=== PATIENT | male | born 1985 | race Caucasian/White ===

== ENCOUNTER 2016-11-29 12:10 | Observation (INO) | payer BC ==
[2016-11-29] MEDS ORDERED: Sodium Chloride 0.9% 1,000 ML IV SCH ×2 (12:45→15:45)
--- NOTE | 2016-11-29 12:45 | EDM.PDOC ---
ED HPI GENERAL MEDICAL PROBLEM - General Chief Complaint: Abdominal Pain Stated Complaint: SENT FROM [place] Time Seen by Provider: 11/29/16 12:14 Source of Information: Reports: Patient, RN Notes Reviewed History Limitations: Reports: No Limitations - History of Present Illness INITIAL COMMENTS - FREE TEXT/NARRATIVE: The patient states that he developed central abdominal pain Jon morning, 11/27. He states that it felt better that afternoon after he had a couple of bowel movements. The pain returned yesterday, 11/28/2016, this time in the lower abdomen. He had nausea, but no emesis. Today he continues to have lower abdominal pain, but without nausea. He describes the pain as a dull ache, but sharp if he moves. It does not radiate. No constipation, diarrhea, or urinary symptoms. No recent fever. No prior similar symptoms. The patient was seen at the [place] [facility] this morning, where a CBC, CMP, and urinalysis were performed. They are all unremarkable, with the exception of his WBC count being elevated at 11.6. The patient does not have a PCP. Lower Abdomen Pain Score (Numeric/FACES): 4 - Related Data Allergies Allergy/AdvReac Type Severity Reaction Status Date / Time No Known Allergies Allergy Verified 11/29/16 12:21 Home Meds: Home Meds . [No Known Home Meds] 11/29/16 [History] Past Medical History - Past Health History Medical/Surgical History: Denies Medical/Surgical History Social & Family History - Tobacco Use Smoking Status *Q: Never Smoker - Caffeine Use Caffeine Use: Reports: None - Alcohol Use Alcohol Use History: Yes Alcohol Use Frequency: Rarely - Recreational Drug Use Recreational Drug Use: No - Living Situation & Occupation Living situation: Reports: , with Spouse, with Family (2 kids) Occupation: Employed (Guest Room Inspector) ED ROS GENERAL - Review of Systems Review Of Systems: See Below Constitutional: Reports: No Symptoms HEENT: Reports: No Symptoms Respiratory: Reports: No Symptoms Cardiovascular: Reports: No Symptoms Endocrine: Reports: No Symptoms GI/Abdominal: Reports: No Symptoms : Reports: No Symptoms Musculoskeletal: Reports: No Symptoms Skin: Reports: No Symptoms Neurological: Reports: No Symptoms Psychiatric: Reports: No Symptoms Hematologic/Lymphatic: Reports: No Symptoms Immunologic: Reports: No Symptoms ED EXAM, GI/ABD - Physical Exam Exam: See Below Exam Limited By: No Limitations General Appearance: Alert, WD/WN, No Apparent Distress Eyes: Bilateral: Normal Appearance, EOMI Ears: Normal External Exam, Hearing Grossly Normal Nose: Normal Inspection, No Blood Throat/Mouth: Normal Inspection, Normal Lips, Normal Voice, No Airway Compromise Head: Atraumatic, Normocephalic Neck: Normal Inspection, Full Range of Motion Respiratory/Chest: No Respiratory Distress, Lungs Clear, Normal Breath Sounds, No Accessory Muscle Use Cardiovascular: Normal Peripheral Pulses, Regular Rate, Rhythm, No Gallop, No JVD, No Murmur, No Rub GI/Abdominal Exam: Normal Bowel Sounds, Soft, No Organomegaly, No Distention, No Abnormal Bruit, No Mass, Pelvis Stable, Tender (Right lower quadrant only. Nontender elsewhere.), Other (Rovsing sign negative. Psoas sign negative. Obturator sign negative. Heel drop sign slightly positive.). No: Rebound (Male) Exam: Deferred Back Exam: Normal Inspection, Full Range of Motion. No: CVA Tenderness (L), CVA Tenderness (R) Extremities: Normal Inspection, Normal Range of Motion, No Pedal Edema, Normal Capillary Refill Neurological: Alert, Oriented, Normal Cognition, No Motor/Sensory Deficits Psychiatric: Normal Affect Skin Exam: Warm, Dry, Intact, Normal Color, No Rash Lymphatic: No Adenopathy Course - Vital Signs Last Recorded V/S: Last Vital Signs Temp 36.7 C 11/29/16 12:17 Pulse 73 11/29/16 12:17 Resp 20 11/29/16 15:17 BP 129/81 11/29/16 12:17 Pulse Ox 99 11/29/16 15:17 - Orders/Labs/Meds Orders: Active Orders 24 hr Category Date Time Status Admission Status [Patient Status] [ADT] Routine ADT 11/29/16 15:37 Active Antiembolic Devices [RC] PER UNIT ROUTINE Care 11/29/16 15:35 Active Communication Order [RC] ROUTINE Care 11/29/16 15:33 Active Patient to Empty Bladder [RC] ASDIRECTED Care 11/29/16 15:33 Active Verify Patient Consent Obtain [RC] ASDIRECTED Care 11/29/16 15:34 Active Nothing per Oral Now Diet [DIET] Diet 11/29/16 Breakfast Active Abdomen Pelvis w Cont [CT] Stat Exams 11/29/16 12:39 Taken Ertapenem [INVanz] 1 gm Med 11/29/16 15:28 Active Sodium Chloride 0.9% [Normal Saline] 100 ml IV ONETIME Ertapenem [INVanz] 1 gm Med 11/29/16 15:33 Active Sodium Chloride 0.9% [Normal Saline] 100 ml IV ONETIME Sodium Chloride 0.9% [Normal Saline] 1,000 ml Med 11/29/16 12:45 Active IV ASDIRECTED Sodium Chloride 0.9% [Normal Saline] 1,000 ml Med 11/29/16 15:45 Active IV ASDIRECTED Sodium Chloride 0.9% [Saline Flush] Med 11/29/16 13:36 Active 10 ml FLUSH ONETIME PRN Schedule Procedure [COMM] Stat Oth 11/29/16 15:10 Ordered Sequential Compression Device [OM.PC] Routine Oth 11/29/16 15:33 Ordered Resuscitation Status Routine Resus Stat 11/29/16 15:33 Ordered Medication Orders Sodium Chloride (Normal Saline) 1,000 mls @ 150 mls/hr IV ASDIRECTED TOM Last Admin: 11/29/16 12:45 Dose: 150 mls/hr Ertapenem 1 gm/ Sodium (Chloride) 100 mls @ 100 mls/hr IV ONETIME ONE Stop: 11/29/16 16:27 Last Admin: 11/29/16 15:36 Dose: 100 mls/hr Ertapenem 1 gm/ Sodium (Chloride) 100 mls @ 100 mls/hr IV ONETIME ONE Stop: 11/29/16 16:32 Sodium Chloride (Normal Saline) 1,000 mls @ 125 mls/hr IV ASDIRECTED [facility] Sodium Chloride (Saline Flush) 10 ml FLUSH ONETIME PRN PRN Reason: IV FLUSH Last Admin: 11/29/16 14:11 Dose: 10 ml Meds: Medications Generic Name Dose Route Start Last Admin Trade Name Freq PRN Reason Stop Dose Admin Sodium Chloride 1,000 mls @ 150 mls/hr 11/29/16 12:45 11/29/16 12:45 Normal Saline IV 150 mls/hr ASDIRECTED TOM Administration Ertapenem 1 gm/ Sodium 100 mls @ 100 mls/hr 11/29/16 15:28 11/29/16 15:36 Chloride IV 11/29/16 16:27 100 mls/hr ONETIME ONE Administration Ertapenem 1 gm/ Sodium 100 mls @ 100 mls/hr 11/29/16 15:33 Chloride IV 11/29/16 16:32 ONETIME ONE Sodium Chloride 1,000 mls @ 125 mls/hr 11/29/16 15:45 Normal Saline IV ASDIRECTED TOM Sodium Chloride 10 ml 11/29/16 13:36 11/29/16 14:11 Saline Flush FLUSH 10 ml ONETIME PRN Administration IV FLUSH Discontinued Medications Generic Name Dose Route Start Last Admin Trade Name Myra PRN Reason Stop Dose Admin Bupivacaine HCl/Epinephrine Bitart Confirm 11/29/16 15:19 Marcaine 0.5%/Epinephrine 1:200,000 Administered 11/29/16 15:20 Dose 50 ml .ROUTE .STK-MED ONE Dexamethasone Confirm 11/29/16 15:39 Dexamethasone Administered 11/29/16 15:40 Dose 20 mg .ROUTE .STK-MED ONE Diatrizoate Meglum/Diatrizoate Sod 90 ml 11/29/16 13:36 11/29/16 14:11 Gastrografin 37% PO 11/29/16 13:37 90 ml ONETIME ONE Administration Fentanyl Confirm 11/29/16 15:37 Sublimaze Administered 11/29/16 15:38 Dose 250 mcg .ROUTE .STK-MED ONE Lidocaine HCl Confirm 11/29/16 15:39 Xylocaine-Mpf 1% Administered 11/29/16 15:40 Dose 4 mls @ as directed .ROUTE .STK-MED ONE Iopamidol 125 ml 11/29/16 13:36 11/29/16 14:11 Isovue-300 (61%) IVPUSH 11/29/16 13:37 110 ml ONETIME ONE Administration Lidocaine/Epinephrine Confirm 11/29/16 15:18 Xylocaine 1% With Epinephrine 1:100,000 Administered 11/29/16 15:19 Dose 20 ml .ROUTE .STK-MED ONE Midazolam HCl Confirm 11/29/16 15:37 Versed 1 Mg/Ml Administered 11/29/16 15:38 Dose 2 mg .ROUTE .STK-MED ONE Ondansetron HCl Confirm 11/29/16 15:39 Zofran Administered 11/29/16 15:40 Dose 4 mg .ROUTE .STK-MED ONE Propofol Confirm 11/29/16 15:37 Diprivan 20 Ml Administered 11/29/16 15:38 Dose 200 mg .ROUTE .STK-MED ONE Rocuronium [place] Confirm 11/29/16 15:39 Zemuron Administered 11/29/16 15:40 Dose 50 mg .ROUTE .STK-MED ONE Scopolamine 1.5 mg 11/29/16 15:17 11/29/16 15:37 Transderm-Scop TRDERM 11/29/16 15:18 1.5 mg ONETIME ONE Administration Succinylcholine Chloride Confirm 11/29/16 15:39 Quelicin Administered 11/29/16 15:40 Dose 200 mg .ROUTE .STK-MED ONE - Re-Assessments/Exams Free Text/Narrative Re-Assessment/Exam: 11/29/16 14:50 CT of the abdomen and pelvis with oral and IV contrast is read by [facility] as "severe, acute appendicitis. No definite evidence for rupture." 11/29/16 14:[address] Cote at 14:51. He would like us to call in the OR team, including anesthesia, and he will come to the ED to evaluate the patient. Departure - Departure Time of Disposition: 14:55 Disposition: DC/Tfer to [facility] Condition: Fair Clinical Impression: Acute appendicitis Qualifiers: Acute appendicitis type: unspecified acute appendicitis type Qualified Code(s) : K35.80 - Unspecified acute appendicitis - Discharge Information - My Orders Last 24 Hours: My Active Orders 11/29/16 12:39 Abdomen Pelvis w Cont [CT] Stat 11/29/16 12:45 Sodium Chloride 0.9% [Normal Saline] 1,000 ml IV ASDIRECTED 11/29/16 13:36 Sodium Chloride 0.9% [Saline Flush] 10 ml FLUSH ONETIME PRN 11/29/16 Breakfast Nothing per Oral Now Diet [DIET] - Assessment/Plan Last 24 Hours: My Active Orders 11/29/16 12:39 Abdomen Pelvis w Cont [CT] Stat 11/29/16 12:45 Sodium Chloride 0.9% [Normal Saline] 1,000 ml IV ASDIRECTED 11/29/16 13:36 Sodium Chloride 0.9% [Saline Flush] 10 ml FLUSH ONETIME PRN 11/29/16 Breakfast Nothing per Oral Now Diet [DIET]
[2016-11-29] MEDS ORDERED: Sodium Chloride 0.9% 10 ML Syringe FLUSH PRN (13:36)
[2016-11-29] MEDS ORDERED: Diatrizoate Meglumine/Diatrizoate Sodium 37% 120 ML Bottle PO ONE (13:36)
[2016-11-29] MEDS ORDERED: Iopamidol 612 MG/ML 150 ML Bottle IVPUSH ONE (13:36)
[2016-11-29] MEDS ORDERED: Scopolamine 1.5 MG Transdermal Patch TRDERM ONE (15:17)
--- NOTE | 2016-11-29 15:17 | PCM.PREANE ---
Preanesthetic Assessment - Anesthesia/Transfusion/Family Hx Anesthesia History: No Prior Anesthesia Family History of Anesthesia Reaction: No Transfusion History: No Prior Transfusion(s) - Review of Systems General: No Symptoms Pulmonary: No Symptoms Cardiovascular: No Symptoms Gastrointestinal: No Symptoms Neurological: No Symptoms Other: Reports: None - Physical Assessment NPO Status Date: 11/29/16 NPO Status Time: 11:30 (1350 contrast dye) O2 Sat by Pulse Oximetry: 99 Respiratory Rate: 20 Vital Signs: Last Vital Signs Temp 36.7 C 11/29/16 12:17 Pulse 73 11/29/16 12:17 Resp 20 11/29/16 12:17 BP 129/81 11/29/16 12:17 Pulse Ox 99 11/29/16 12:17 Height: 1.73 m Weight: 62.596 kg ASA Class: 1E Mental Status: Alert & Oriented x3 Airway Class: Mallampati = 1 Dentition: Reports: Normal Dentition Thyro-Mental Finger Breadths: 3 Mouth Opening Finger Breadths: 3 ROM/Head Extension: Full Lungs: Clear to Auscultation, Normal Respiratory Effort Cardiovascular: Regular Rate, Regular Rhythm - Allergies Allergies/Adverse Reactions: Allergies Allergy/AdvReac Type Severity Reaction Status Date / Time No Known Allergies Allergy Verified 11/29/16 12:21 - Blood Blood Available: No Product(s) Available: None - Anesthesia Plan Pre-Op Medication Ordered: None - Acknowledgements Anesthesia Type Planned: General Anesthesia Pt an Appropriate Candidate for the Planned Anesthesia: Yes Alternatives and Risks of Anesthesia Discussed w Pt/Guardian: Yes Pt/Guardian Understands and Agrees with Anesthesia Plan: Yes PreAnesthesia Questionnaire - Past Health History Medical/Surgical History: Denies Medical/Surgical History - SUBSTANCE USE Smoking Status *Q: Never Smoker Recreational Drug Use History: No - HOME MEDS Home Medications: Home Meds . [No Known Home Meds] 11/29/16 [History] - CURRENT (IN HOUSE) MEDS Current Meds: Current Medications Sodium Chloride (Normal Saline) 1,000 mls @ 150 mls/hr IV ASDIRECTED TOM Last Admin: 11/29/16 12:45 Dose: 150 mls/hr Sodium Chloride (Saline Flush) 10 ml FLUSH ONETIME PRN PRN Reason: IV FLUSH Last Admin: 11/29/16 14:11 Dose: 10 ml Discontinued Medications Diatrizoate Meglum/Diatrizoate Sod (Gastrografin 37%) 90 ml PO ONETIME ONE Stop: 11/29/16 13:37 Last Admin: 11/29/16 14:11 Dose: 90 ml Iopamidol (Isovue-300 (61%)) 125 ml IVPUSH ONETIME ONE Stop: 11/29/16 13:37 Last Admin: 11/29/16 14:11 Dose: 110 ml
[2016-11-29] MEDS ORDERED: Lidocaine 1% with EPINEPHrine 1:100,000 20 ML MDV ONE (15:18)
[2016-11-29] MEDS ORDERED: Bupivacaine 0.5%/EPINEPHrine 1:200,000 50 ML MDV ONE (15:19)
[2016-11-29] MEDS ORDERED: Ertapenem 1 GM in Sodium Chloride 0.9% 100 ML IV ONE ×2 (15:28→15:33)
[2016-11-29] MEDS ORDERED: Propofol 200 MG/20 ML SDV ONE (15:37)
[2016-11-29] MEDS ORDERED: fentaNYL 250 MCG/5 ML SDV ONE (15:37)
[2016-11-29] MEDS ORDERED: Midazolam 1 MG/ML 2 ML SDV ONE (15:37)
[2016-11-29] MEDS ORDERED: Succinylcholine 200 MG/10 ML MDV ONE (15:39)
[2016-11-29] MEDS ORDERED: Ondansetron 4 MG/2 ML SDV ONE (15:39)
[2016-11-29] MEDS ORDERED: Lidocaine 1% 4 ML ONE (15:39)
[2016-11-29] MEDS ORDERED: Rocuronium 50 MG/5 ML Vial ONE (15:39)
[2016-11-29] MEDS ORDERED: Dexamethasone 4 MG/ML 5 ML MDV ONE (15:39)
--- NOTE | 2016-11-29 15:39 | PCM.HP ---
H&P History of Present Illness - General Date of Service: 11/29/16 Source of Information: Patient History Limitations: Reports: No Limitations - History of Present Illness Initial Comments - Free Text/Narative: 31-year-old male experienced abdominal discomfort yesterday. Eventually the discomfort evolved into periumbilical pain which migrated to the right lower quadrant. Because of persistent pain he presented to the emergency room. A CT scan of his abdomen was performed and was remarkable for acute appendicitis. I was asked to see him for surgery. He ate raisins about 4 hours ago. Lower Abdomen Pain Score (Numeric/FACES): 4 - Related Data Allergies/Adverse Reactions: Allergies Allergy/AdvReac Type Severity Reaction Status Date / Time No Known Allergies Allergy Verified 11/29/16 12:21 Home Medications: Home Meds . [No Known Home Meds] 11/29/16 [History] Past Medical History - Past Health History Medical/Surgical History: Denies Medical/Surgical History Social & Family History - Tobacco Use Smoking Status *Q: Never Smoker - Caffeine Use Caffeine Use: Reports: None - Recreational Drug Use Recreational Drug Use: No - Living Situation & Occupation Living situation: Reports: , with Spouse, with Family (2 kids) Occupation: Employed (Assistant Merchandise Manager) H&P Review of Systems - Review of Systems: Review Of Systems: See Below Gastrointestinal: Reports: Abdominal Pain Exam - Exam Exam: See Below - Vital Signs Vital Signs: Last Vital Signs Temp 36.7 C 11/29/16 12:17 Pulse 73 11/29/16 12:17 Resp 20 11/29/16 15:17 BP 129/81 11/29/16 12:17 Pulse Ox 99 11/29/16 15:17 Weight: 62.596 kg - Exam General: Alert, Oriented HEENT: EOMI, Hearing Intact Neck: Supple, Trachea Midline Lungs: Clear to Auscultation, Normal Respiratory Effort Cardiovascular: Regular Rate, Regular Rhythm, Normal S1, Normal S2 GI/Abdominal Exam: Normal Bowel Sounds, Soft, Tender (Midline to right lower quadrant) Rectal (Males) Exam: Deferred Back Exam: Normal Inspection Extremities: Non-Tender Skin: Warm, Dry, Intact Neuro Extensive - Mental Status: Alert, Oriented x3, Normal Mood/Affect, Normal Cognition, Memory Intact Psychiatric: Alert, Normal Affect, Normal Mood *Q Meaningful Use (ADM) - VTE *Q VTE Criteria *Q: - Stroke *Q Stroke Criteria *Q: - AMI *Q AMI Criteria *Q: - Problem List (1) Acute appendicitis SNOMED Code(s): 83936044 ICD Code: K35.80 - UNSPECIFIED ACUTE APPENDICITIS Status: Acute Priority : Medium Current Visit: Yes Onset Date: ~11/28/16 Qualifiers: Acute appendicitis type: unspecified acute appendicitis type Qualified Code (s): K35.80 - Unspecified acute appendicitis Problem List Initiated/Reviewed/Updated: Yes Orders Last 24hrs: Active Orders 24 hr Category Date Time Status Antiembolic Devices [RC] PER UNIT ROUTINE Care 11/29/16 15:35 Ordered Communication Order [RC] ROUTINE Care 11/29/16 15:33 Ordered Patient to Empty Bladder [RC] ASDIRECTED Care 11/29/16 15:33 Ordered Verify Patient Consent Obtain [RC] ASDIRECTED Care 11/29/16 15:34 Ordered Nothing per Oral Now Diet [DIET] Diet 11/29/16 Breakfast Active Abdomen Pelvis w Cont [CT] Stat Exams 11/29/16 12:39 Taken Ertapenem [INVanz] 1 gm Med 11/29/16 15:28 Active Sodium Chloride 0.9% [Normal Saline] 100 ml IV ONETIME Ertapenem [INVanz] 1 gm Med 11/29/16 15:33 Ordered Sodium Chloride 0.9% [Normal Saline] 100 ml IV ONETIME Sodium Chloride 0.9% @ 125 MLS/HR (1000ml) Med 11/29/16 15:45 Ordered Sodium Chloride 0.9% [Normal Saline] 1,000 ml IV ASDIRECTED Sodium Chloride 0.9% [Normal Saline] 1,000 ml Med 11/29/16 12:45 Active IV ASDIRECTED Sodium Chloride 0.9% [Saline Flush] Med 11/29/16 13:36 Active 10 ml FLUSH ONETIME PRN Schedule Procedure [COMM] Stat Oth 11/29/16 15:10 Ordered Sequential Compression Device [OM.PC] Routine Oth 11/29/16 15:33 Ordered Resuscitation Status Routine Resus Stat 11/29/16 15:33 Ordered Medication Orders Sodium Chloride (Normal Saline) 1,000 mls @ 150 mls/hr IV ASDIRECTED TOM Last Admin: 11/29/16 12:45 Dose: 150 mls/hr Ertapenem 1 gm/ Sodium (Chloride) 100 mls @ 100 mls/hr IV ONETIME ONE Stop: 11/29/16 16:27 Sodium Chloride (Saline Flush) 10 ml FLUSH ONETIME PRN PRN Reason: IV FLUSH Last Admin: 11/29/16 14:11 Dose: 10 ml Assessment/Plan Comment:: imp: Acute appendicitis. I recommended labs Copaxone possible open appendectomy. plan: Appendectomy. Prophylactic antibiotics. The benefits and risks as well as the alternatives were explained to the patient. We talked about bleeding infection as well as intra-abdominal and pelvic injury. I also discussed the possibility of admission to the hospital for additional care if needed. He wants to proceed.
[2016-11-29] MEDS ORDERED: Ondansetron 4 MG/2 ML SDV IVPUSH PRN ×2 (16:19→16:52)
[2016-11-29] MEDS ORDERED: diphenhydrAMINE 50 MG/ML SDV IVPUSH PRN (16:19)
[2016-11-29] MEDS ORDERED: HYDROmorphone 0.5 MG/0.5 ML Syringe IVPUSH PRN ×2 (16:19→16:52)
[2016-11-29] MEDS ORDERED: fentaNYL 100 MCG/2 ML SDV IVPUSH PRN (16:19)
[2016-11-29] MEDS ORDERED: HYDROmorphone 1 MG/ML Syringe ONE (16:23)
[2016-11-29] MEDS ORDERED: Glycopyrrolate 0.2 MG/ML SDV ONE ×2 (16:45→16:47)
[2016-11-29] MEDS ORDERED: Neostigmine Methylsulfate 10 MG/10 ML MDV ONE (16:45)
[2016-11-29] MEDS ORDERED: Acetaminophen/oxyCODONE 325-5 MG Tab PO PRN (16:52)
[2016-11-29] MEDS ORDERED: Piperacillin/Tazobactam 4.5 GM in Sodium Chloride 0.9% 100 ML IV ONE (17:00)
--- NOTE | 2016-11-29 17:01 | PCM.OPNOTE ---
- General Post-Op/Procedure Note Date of Surgery/Procedure: 11/29/16 Operative Procedure(s): Laparoscopic appendectomy Findings: Edematous and dilated appendix with omental wrap. Turbid fluid in the pelvis. Possible perforation into the mesentery of the appendix. Adhesions between the cecum and the right lower quadrant. Pre Op Diagnosis: Acute appendicitis Post-Op Diagnosis: Same Anesthesia Technique: General ET Tube, Local Primary Surgeon: Patrice Cote Pathology: Appendix EBL in mLs: 2 Complications: None Condition: Good Free Text/Narrative:: After adequate general endotracheal tube anesthesia was obtained the patient's abdomen was prepped and draped sterilely for the procedure. A supraumbilical incision was made with a 15 blade after local analgesia was given. The incision was deepened to the midline which was opened sharply with a 15 blade. A 12 mm camera port was inserted into the abdomen followed by CO2 pneumoperitoneum. A 5 mm working port was placed in the suprapubic region and in the left lower quadrant. Exploration revealed the findings above. I the omentum which was wrapped around the body of the appendix with suction and irrigation dissection. I then created a window in the mesentery at the appendiceal base. I fired the stapler across the appendiceal base. I then fired 3 more loads across the thickened appendiceal mesentery. With the stapler in the locked position there was apparent exudate or pus versus mucus coming from the mesenteric stump which suggested a possible perforation into the appendiceal mesentery. There was no fecal or purulent spillage. I irrigated out the right lower quadrant and right upper quadrants with 2 L of saline solution. The specimen was removed through the umbilicus in a bag. There was no obvious bowel injury as well and no bleeding seen. I decannulated the abdomen under direct vision with no bleeding from the port sites. Photographs were taken for the patient and for the record.
--- NOTE | 2016-11-29 17:07 | PCM.POSTAN ---
POST ANESTHESIA ASSESSMENT - MENTAL STATUS Mental Status: Alert, Oriented - VITAL SIGNS Pulse Rate: 102 SaO2: 99 Resp Rate: 21 Blood Pressure: 144/93 Temperature: 37.1 C - RESPIRATORY Respiratory Status: Respiratory Rate WNL, Airway Patent, O2 Saturation Stable, Supplemental Oxygen - CARDIOVASCULAR CV Status: Pulse Rate WNL, Blood Pressure Stable - GASTROINTESTINAL GI Status: No Symptoms - PAIN Pain Score: 0 - POST OP HYDRATION Hydration Status: Adequate & Stable
[2016-11-29] MEDS ORDERED: Ketorolac 30 MG/ML SDV ONE (17:13)
[2016-11-29] MEDS: Ketorolac 15 MG/ML SDV IM SCH ×2 (18:35→22:30)
[2016-11-29] MEDS: Sodium Chloride 0.9% 1,000 ML IV SCH (18:45)
[2016-11-29] MEDS: Piperacillin/Tazobactam 4.5 GM in Sodium Chloride 0.9% 100 ML IV SCH (23:31)
[2016-11-30] MEDS: Sodium Chloride 0.9% 1,000 ML IV SCH (04:40)
[2016-11-30] MEDS: Ketorolac 15 MG/ML SDV IM SCH ×2 (04:41→14:19)
[2016-11-30] MEDS: Piperacillin/Tazobactam 4.5 GM in Sodium Chloride 0.9% 100 ML IV SCH ×2 (06:15→14:09)
[2016-11-30] MEDS ORDERED: Sodium Chloride 0.9% 10 ML Syringe FLUSH PRN (08:01)
--- NOTE | 2016-11-30 08:04 | PCM.SURGPN ---
- General Info Date of Service: 11/30/16 Functional Status: Reports: Pain Controlled, Tolerating Diet, Ambulating, Urinating - Review of Systems Gastrointestinal: Reports: Other (Left lateral port site discomfort) - Patient Data Vitals - Most Recent: Last Vital Signs Temp 36.8 C 11/30/16 04:29 Pulse 53 L 11/30/16 04:29 Resp 14 11/30/16 04:29 BP 98/59 L 11/30/16 04:29 Pulse Ox 94 L 11/30/16 04:29 Weight - Most Recent: 64.093 kg I&O - Last 24 Hours: Intake & Output 11/29/16 11/30/16 11/30/16 22:59 06:59 14:59 Intake Total 250 2598 Balance 250 2598 Lab Results Last 24 Hrs: Laboratory Results - last 24 hr 11/30/16 Range/Units 05:42 WBC 9.86 H (4.23-9.07) K/mm3 RBC 3.95 L (4.63-6.08) M/mm3 Hgb 12.3 L (13.7-17.5) gm/L Hct 36.5 L (40.1-51.0) % MCV 92.4 H (79.0-92.2) fl MCH 31.1 (25.7-32.2) pg MCHC 33.7 (32.2-35.5) g/dl RDW Std Deviation 49.5 H (35.1-43.9) fL Plt Count 268 (163-337) K/mm3 MPV 11.3 (9.4-12.3) fl Neut % (Auto) 82.1 H (34.0-67.9) % Lymph % (Auto) 10.9 L (21.8-53.1) % Major % (Auto) 6.9 (5.3-12.2) % Eos % (Auto) 0 L (0.8-7.0) Baso % (Auto) 0.0 L (0.1-1.2) % Neut # (Auto) 8.10 H (1.78-5.38) K/mm3 Lymph # (Auto) 1.07 L (1.32-3.57) K/mm3 Major # (Auto) 0.68 (0.30-0.82) K/mm3 Eos # (Auto) 0.00 L (0.04-0.54) K/mm3 Baso # (Auto) 0.00 L (0.01-0.08) K/mm3 Med Orders - Current: Current Medications Acetaminophen (Tylenol) 650 mg PO Q4H PRN PRN Reason: Pain Diphenhydramine HCl (Benadryl) 25 mg IVPUSH Q6H PRN PRN Reason: Pruritis Hydromorphone HCl (Dilaudid) 0.5 mg IVPUSH Q1H PRN PRN Reason: Pain (severe 7-10) Piperacillin Sod/Tazobactam (Sod 4.5 gm/ Sodium Chloride) 100 mls @ 25 mls/hr IV Q8H [facility] Last Admin: 11/30/16 06:15 Dose: 25 mls/hr Ketorolac Tromethamine (Toradol) 15 mg IM Q6H [facility] Stop: 11/30/16 11:01 Last Admin: 11/30/16 04:41 Dose: Not Given Ondansetron HCl (Zofran) 4 mg IVPUSH Q6H PRN PRN Reason: Nausea/Vomiting Oxycodone/Acetaminophen (Percocet 325-5 Mg) 1 tab PO Q4H PRN PRN Reason: Pain (moderate 4-6) Sodium Chloride (Saline Flush) 10 ml FLUSH ONETIME PRN PRN Reason: IV FLUSH Last Admin: 11/29/16 14:11 Dose: 10 ml Sodium Chloride (Saline Flush) 10 ml FLUSH ASDIRECTED PRN PRN Reason: Keep Vein Open Discontinued Medications Bupivacaine HCl/Epinephrine Bitart (Marcaine 0.5%/Epinephrine 1:200,000) Confirm Administered Dose 50 ml .ROUTE .STK-MED ONE Stop: 11/29/16 15:20 Last Admin: 11/29/16 16:08 Dose: 10 ml Dexamethasone (Dexamethasone) Confirm Administered Dose 20 mg .ROUTE .STK-MED ONE Stop: 11/29/16 15:40 Diatrizoate Meglum/Diatrizoate Sod (Gastrografin 37%) 90 ml PO ONETIME ONE Stop: 11/29/16 13:37 Last Admin: 11/29/16 14:11 Dose: 90 ml Fentanyl (Sublimaze) Confirm Administered Dose 250 mcg .ROUTE .STK-MED ONE Stop: 11/29/16 15:38 Fentanyl (Sublimaze) 50 mcg IVPUSH Q5M PRN PRN Reason: Pain Stop: 11/29/16 16:35 Glycopyrrolate (Robinul) Confirm Administered Dose 0.6 mg .ROUTE .STK-MED ONE Stop: 11/29/16 16:46 Glycopyrrolate (Robinul) Confirm Administered Dose 0.4 mg .ROUTE .STK-MED ONE Stop: 11/29/16 16:48 Hydromorphone HCl (Dilaudid) Confirm Administered Dose 1 mg .ROUTE .STK-MED ONE Stop: 11/29/16 16:24 Hydromorphone HCl (Dilaudid) 0.5 mg IVPUSH Q15M PRN PRN Reason: Pain (severe 7-10) Stop: 11/29/16 16:35 Sodium Chloride (Normal Saline) 1,000 mls @ 150 mls/hr IV ASDIRECTED [facility] Last Admin: 11/29/16 12:45 Dose: 150 mls/hr Lidocaine HCl (Xylocaine-Mpf 1%) Confirm Administered Dose 4 mls @ as directed .ROUTE .STK-MED ONE Stop: 11/29/16 15:40 Ertapenem 1 gm/ Sodium (Chloride) 100 mls @ 100 mls/hr IV ONETIME ONE Stop: 11/29/16 16:27 Last Admin: 11/29/16 15:36 Dose: 100 mls/hr Ertapenem 1 gm/ Sodium (Chloride) 100 mls @ 100 mls/hr IV ONETIME ONE Stop: 11/29/16 16:32 Last Admin: 11/29/16 18:34 Dose: Not Given Sodium Chloride (Normal Saline) 1,000 mls @ 125 mls/hr IV ASDIRECTED [facility] Sodium Chloride (Normal Saline) 1,000 mls @ 125 mls/hr IV ASDIRECTED [facility] Last Admin: 11/30/16 04:40 Dose: 125 mls/hr Piperacillin Sod/Tazobactam (Sod 4.5 gm/ Sodium Chloride) 100 mls @ 200 mls/hr IV ONETIME ONE Stop: 11/29/16 17:29 Last Admin: 11/29/16 18:44 Dose: 200 mls/hr Iopamidol (Isovue-300 (61%)) 125 ml IVPUSH ONETIME ONE Stop: 11/29/16 13:37 Last Admin: 11/29/16 14:11 Dose: 110 ml Ketorolac Tromethamine (Toradol) Confirm Administered Dose 30 mg .ROUTE .STK- MED ONE Stop: 11/29/16 17:14 Lidocaine/Epinephrine (Xylocaine 1% With Epinephrine 1:100,000) Confirm Administered Dose 20 ml .ROUTE .STK-MED ONE Stop: 11/29/16 15:19 Last Admin: 11/29/16 16:08 Dose: 10 ml Midazolam HCl (Versed 1 Mg/Ml) Confirm Administered Dose 2 mg .ROUTE .STK-MED ONE Stop: 11/29/16 15:38 Neostigmine Methylsulfate (Neostigmine Methylsulfate) Confirm Administered Dose 10 mg .ROUTE .STK-MED ONE Stop: 11/29/16 16:46 Ondansetron HCl (Zofran) Confirm Administered Dose 4 mg .ROUTE .STK-MED ONE Stop: 11/29/16 15:40 Ondansetron HCl (Zofran) 4 mg IVPUSH ONETIME PRN PRN Reason: Nausea/Vomiting Propofol (Diprivan 20 Ml) Confirm Administered Dose 200 mg .ROUTE .STK-MED ONE Stop: 11/29/16 15:38 Rocuronium [place] (Zemuron) Confirm Administered Dose 50 mg .ROUTE .STK-MED ONE Stop: 11/29/16 15:40 Scopolamine (Transderm-Scop) 1.5 mg TRDERM ONETIME ONE Stop: 11/29/16 15:18 Last Admin: 11/29/16 15:37 Dose: 1.5 mg Succinylcholine Chloride (Quelicin) Confirm Administered Dose 200 mg .ROUTE .STK -MED ONE Stop: 11/29/16 15:40 - Exam Wound/Incisions: Dressing Dry and Intact - Problem List & Annotations (1) Acute appendicitis SNOMED Code(s): 59046976 Code(s): K35.80 - UNSPECIFIED ACUTE APPENDICITIS Status: Resolved Priority: Medium Current Visit: Yes Onset Date: ~11/28/16 Qualifiers: Acute appendicitis type: unspecified acute appendicitis type Qualified Code (s): K35.80 - Unspecified acute appendicitis - Problem List Review Problem List Initiated/Reviewed/Updated: Yes - My Orders Last 24 Hours: Active Orders 24 hr Category Date Time Status Acetaminophen [Tylenol] Med 11/30/16 08:02 Ordered 650 mg PO Q4H PRN Piperacillin/Tazobactam [Zosyn] 4.5 gm Med 11/29/16 23:00 Active Sodium Chloride 0.9% [Normal Saline] 100 ml IV Q8H Sodium Chloride 0.9% [Saline Flush] Med 11/30/16 08:01 Ordered 10 ml FLUSH ASDIRECTED PRN Convert IV to Saline Lock [OM.PC] Routine Oth 11/30/16 08:01 Ordered Medication Orders Acetaminophen (Tylenol) 650 mg PO Q4H PRN PRN Reason: Pain Diphenhydramine HCl (Benadryl) 25 mg IVPUSH Q6H PRN PRN Reason: Pruritis Hydromorphone HCl (Dilaudid) 0.5 mg IVPUSH Q1H PRN PRN Reason: Pain (severe 7-10) Piperacillin Sod/Tazobactam (Sod 4.5 gm/ Sodium Chloride) 100 mls @ 25 mls/hr IV Q8H [facility] Last Admin: 11/30/16 06:15 Dose: 25 mls/hr Infusion: 11/30/16 03:31 Dose: 25 mls/hr Admin: 11/29/16 23:31 Dose: 25 mls/hr Ketorolac Tromethamine (Toradol) 15 mg IM Q6H [facility] Stop: 11/30/16 11:01 Last Admin: 11/30/16 04:41 Dose: Not Given Admin: 11/29/16 22:30 Dose: Not Given Admin: 11/29/16 18:35 Dose: Ondansetron HCl (Zofran) 4 mg IVPUSH Q6H PRN PRN Reason: Nausea/Vomiting Oxycodone/Acetaminophen (Percocet 325-5 Mg) 1 tab PO Q4H PRN PRN Reason: Pain (moderate 4-6) Sodium Chloride (Saline Flush) 10 ml FLUSH ONETIME PRN PRN Reason: IV FLUSH Last Admin: 11/29/16 14:11 Dose: 10 ml Sodium Chloride (Saline Flush) 10 ml FLUSH ASDIRECTED PRN PRN Reason: Keep Vein Open - Assessment Assessment (Free Text/Narrative):: Doing well. Plan discharge after 3 postoperative doses of Zosyn then will discharge on oral antibiotics this evening. - Plan Plan (Free Text/Narrative):: Discharge around 6 PM.
--- NOTE | 2016-11-30 08:37 | PCM48HPAN ---
Post Anesthesia Note - EVALUATION WITHIN 48HRS OF ANESTHETIC Vital Signs in Normal Range: Yes Patient Participated in Evaluation: Yes Respiratory Function Stable: Yes Airway Patent: Yes Cardiovascular Function Stable: Yes Hydration Status Stable: Yes Pain Control Satisfactory: Yes Nausea and Vomiting Control Satisfactory: Yes Mental Status Recovered: Yes
[2016-11-30] MEDS: Acetaminophen 325 MG Tab PO PRN ×2 (09:35→17:54)
--- NOTE | 2016-11-30 10:29 | CT ---
CT abdomen and pelvis Technique: Multiple axial sections were obtained from above the dome of the diaphragm inferiorly through the pubic symphysis. Delayed images were also obtained through the bladder. Comparison: No previous abdominal imaging. Findings: Dilated appendix is seen containing fluid as well as a small calcification compatible with appendicolith. Inflammatory change seen around the appendix. There is some free fluid being seen within the pelvis which may represent reactive fluid from the appendicitis or represent pus. Small portion of visualized lung bases shows nothing acute. Liver shows no focal parenchymal abnormality. Spleen appears within normal limits. Adrenal glands show no nodule. Pancreas is within normal limits. Gallbladder shows no calcified gallstones. Small low-density lesion identified within the lower right kidney which is nonspecific regarding Hounsfield unit measurements and measures about 7 mm. Kidneys are otherwise unremarkable. Aorta shows no aneurysmal dilatation. No retroperitoneal adenopathy or mesenteric abnormalities are seen. No additional pelvic abnormality is noted. No bowel dilatation is seen. Delayed images show contrast within the distal ureters and within the bladder. Bone window settings were reviewed which appear within normal limits for the patient's age. Impression: 1. Findings compatible with appendicitis as described above. Fluid within the pelvis either due to reactive fluid or pus. 2. Small 7 mm nonspecific lesion within the lower right kidney. Statistically this is likely due to incidental cyst. 3. No additional abnormality identified on CT study of the abdomen and pelvis. Diagnostic code #5 Agree with preliminary report issued by [facility] ([facility] preliminary report dictated on 11/29/16, 3:39 PM Central Time)
[2016-11-30 17:36] VITALS: BP 109/57
--- NOTE | 2016-12-09 07:41 | PCM.DCSUM1 ---
Discharge Summary - Hospital Course Free Text/Narrative:: Uncomplicated postoperative course Brief History: Acute appendicitis with abdominal pain - Discharge Data Discharge Date: 11/30/16 Discharge Disposition: Home, Self-Care 01 Condition: Good - Discharge Diagnosis/Problem(s) (1) Acute appendicitis SNOMED Code(s): 34783150 ICD Code: K35.80 - UNSPECIFIED ACUTE APPENDICITIS Status: Resolved Priority: Medium Onset Date: ~11/28/16 Qualifiers: Acute appendicitis type: unspecified acute appendicitis type Qualified Code (s): K35.80 - Unspecified acute appendicitis - Patient Summary/Data Operative Procedure(s) Performed: Laparoscopic appendectomy Complications: None Labs Pending at D/C: None Planned Operative Procedure(s) after DC: None Hospital Course: Uncomplicated postoperative course. - Patient Instructions Diet: Usual Diet as Tolerated Activity: As Tolerated, Rest and Relax Today Driving: Do Not Drive Showering/Bathing: Shower in AM Wound/Incision Care: Keep Operative Site/Wound Site Clean and Dry Notify Provider of: Fever, Increased Pain, Swelling and Redness - Discharge Plan Prescriptions/Med Rec: Sulfamethoxazole/Trimethoprim [Bactrim Ds Tablet] 1 each PO BID #10 tablet metroNIDAZOLE [Flagyl] 500 mg PO BID #10 tablet Home Medications: Home Meds Sulfamethoxazole/Trimethoprim [Bactrim Ds Tablet] 1 each PO BID #10 tablet 11/30 [Rx] metroNIDAZOLE [Flagyl] 500 mg PO BID #10 tablet 11/30/16 [Rx] Patient Handouts: Laparoscopic Appendectomy, Adult, Care After, [id number], Appendicitis, [id number] Referrals: PCP,None [Primary Care Provider] - 12/08/16 (Follow-up in my office one week for routine postoperative surgical visit) - Discharge Summary/Plan Comment DC Time >30 min.: No Discharge Summary/Plan Comment: Care instructions and other postop instructions were provided to the patient verbally as well as in writing. - Patient Data Vitals - Most Recent: Last Vital Signs Temp 36.9 C 11/30/16 12:28 Pulse 63 11/30/16 16:34 Resp 14 11/30/16 16:34 BP 109/57 L 11/30/16 16:34 Pulse Ox 90 L 11/30/16 16:34 Weight - Most Recent: 64.093 kg Med Orders - Current: Current Medications Discontinued Medications Acetaminophen (Tylenol) 650 mg PO Q4H PRN PRN Reason: Pain Last Admin: 11/30/16 17:54 Dose: 650 mg Bupivacaine HCl/Epinephrine Bitart (Marcaine 0.5%/Epinephrine 1:200,000) Confirm Administered Dose 50 ml .ROUTE .STK-MED ONE Stop: 11/29/16 15:20 Last Admin: 11/29/16 16:08 Dose: 10 ml Dexamethasone (Dexamethasone) Confirm Administered Dose 20 mg .ROUTE .STK-MED ONE Stop: 11/29/16 15:40 Diatrizoate Meglum/Diatrizoate Sod (Gastrografin 37%) 90 ml PO ONETIME ONE Stop: 11/29/16 13:37 Last Admin: 11/29/16 14:11 Dose: 90 ml Diphenhydramine HCl (Benadryl) 25 mg IVPUSH Q6H PRN PRN Reason: Pruritis Fentanyl (Sublimaze) Confirm Administered Dose 250 mcg .ROUTE .STK-MED ONE Stop: 11/29/16 15:38 Fentanyl (Sublimaze) 50 mcg IVPUSH Q5M PRN PRN Reason: Pain Stop: 11/29/16 16:35 Glycopyrrolate (Robinul) Confirm Administered Dose 0.6 mg .ROUTE .STK-MED ONE Stop: 11/29/16 16:46 Glycopyrrolate (Robinul) Confirm Administered Dose 0.4 mg .ROUTE .STK-MED ONE Stop: 11/29/16 16:48 Hydromorphone HCl (Dilaudid) Confirm Administered Dose 1 mg .ROUTE .STK-MED ONE Stop: 11/29/16 16:24 Hydromorphone HCl (Dilaudid) 0.5 mg IVPUSH Q15M PRN PRN Reason: Pain (severe 7-10) Stop: 11/29/16 16:35 Hydromorphone HCl (Dilaudid) 0.5 mg IVPUSH Q1H PRN PRN Reason: Pain (severe 7-10) Sodium Chloride (Normal Saline) 1,000 mls @ 150 mls/hr IV ASDIRECTED [facility] Last Admin: 11/29/16 12:45 Dose: 150 mls/hr Lidocaine HCl (Xylocaine-Mpf 1%) Confirm Administered Dose 4 mls @ as directed .ROUTE .STK-MED ONE Stop: 11/29/16 15:40 Ertapenem 1 gm/ Sodium (Chloride) 100 mls @ 100 mls/hr IV ONETIME ONE Stop: 11/29/16 16:27 Last Admin: 11/29/16 15:36 Dose: 100 mls/hr Ertapenem 1 gm/ Sodium (Chloride) 100 mls @ 100 mls/hr IV ONETIME ONE Stop: 11/29/16 16:32 Last Admin: 11/29/16 18:34 Dose: Not Given Sodium Chloride (Normal Saline) 1,000 mls @ 125 mls/hr IV ASDIRECTED [facility] Sodium Chloride (Normal Saline) 1,000 mls @ 125 mls/hr IV ASDIRECTED [facility] Last Admin: 11/30/16 04:40 Dose: 125 mls/hr Piperacillin Sod/Tazobactam (Sod 4.5 gm/ Sodium Chloride) 100 mls @ 200 mls/hr IV ONETIME ONE Stop: 11/29/16 17:29 Last Admin: 11/29/16 18:44 Dose: 200 mls/hr Piperacillin Sod/Tazobactam (Sod 4.5 gm/ Sodium Chloride) 100 mls @ 25 mls/hr IV Q8H [facility] Last Admin: 11/30/16 14:09 Dose: 25 mls/hr Iopamidol (Isovue-300 (61%)) 125 ml IVPUSH ONETIME ONE Stop: 11/29/16 13:37 Last Admin: 11/29/16 14:11 Dose: 110 ml Ketorolac Tromethamine (Toradol) 15 mg IM Q6H [facility] Stop: 11/30/16 11:01 Last Admin: 11/30/16 14:19 Dose: Not Given Ketorolac Tromethamine (Toradol) Confirm Administered Dose 30 mg .ROUTE .STK- MED ONE Stop: 11/29/16 17:14 Lidocaine/Epinephrine (Xylocaine 1% With Epinephrine 1:100,000) Confirm Administered Dose 20 ml .ROUTE .STK-MED ONE Stop: 11/29/16 15:19 Last Admin: 11/29/16 16:08 Dose: 10 ml Midazolam HCl (Versed 1 Mg/Ml) Confirm Administered Dose 2 mg .ROUTE .STK-MED ONE Stop: 11/29/16 15:38 Neostigmine Methylsulfate (Neostigmine Methylsulfate) Confirm Administered Dose 10 mg .ROUTE .STK-MED ONE Stop: 11/29/16 16:46 Ondansetron HCl (Zofran) Confirm Administered Dose 4 mg .ROUTE .STK-MED ONE Stop: 11/29/16 15:40 Ondansetron HCl (Zofran) 4 mg IVPUSH ONETIME PRN PRN Reason: Nausea/Vomiting Ondansetron HCl (Zofran) 4 mg IVPUSH Q6H PRN PRN Reason: Nausea/Vomiting Oxycodone/Acetaminophen (Percocet 325-5 Mg) 1 tab PO Q4H PRN PRN Reason: Pain (moderate 4-6) Propofol (Diprivan 20 Ml) Confirm Administered Dose 200 mg .ROUTE .STK-MED ONE Stop: 11/29/16 15:38 Rocuronium [place] (Zemuron) Confirm Administered Dose 50 mg .ROUTE .STK-MED ONE Stop: 11/29/16 15:40 Scopolamine (Transderm-Scop) 1.5 mg TRDERM ONETIME ONE Stop: 11/29/16 15:18 Last Admin: 11/29/16 15:37 Dose: 1.5 mg Sodium Chloride (Saline Flush) 10 ml FLUSH ONETIME PRN PRN Reason: IV FLUSH Last Admin: 11/29/16 14:11 Dose: 10 ml Sodium Chloride (Saline Flush) 10 ml FLUSH ASDIRECTED PRN PRN Reason: Keep Vein Open Succinylcholine Chloride (Quelicin) Confirm Administered Dose 200 mg .ROUTE .STK -MED ONE Stop: 11/29/16 15:40 *Q Meaningful Use (DIS) - VTE *Q VTE Criteria *Q: - Stroke *Q Stroke Criteria *Q: - AMI *Q AMI Criteria *Q:
== END 2016-11-30 18:28 | disposition home or self-care (01) ==
LOC: JD.ED 12:10 → JD.SDS 15:07 → JD.MS 16:52
PROVIDERS: ADMIT Surgery; ATTEND Surgery
PROC: 0DTJ4ZZ Resection of Appendix, Percutaneous Endoscopic Approach (ICD-10-PCS; principal; 2016-11-29)
DX: K35.3 Acute appendicitis with localized peritonitis (principal); K66.0 Peritoneal adhesions (postprocedural) (postinfection)
CPT/HCPCS: 36415; 44970; 74177; 85025; 96361; 96374; 99285; A9270; G0378; J0330; J1100; J1170; J1335; J1885; J2250; J2405; J2543; J2710; J3010; J3490; J7030; J7040; J7050; Q9963; Q9967; 00840; J2704